=== PATIENT | male | born 1965 | race Caucasian/White ===

== ENCOUNTER 2019-11-14 07:40 | Outpatient (CLI) | payer OTHER, SELFPAY ==
--- NOTE | 2019-11-14 07:51 | US_ITS ---
WS: [id number] SCROTAL ULTRASOUND EXAMINATION CLINICAL INFORMATION: EDEMA COMPARISON: None. FINDINGS: TESTES Normal in size and echotexture, without focal lesion. Color Doppler: Normal color Doppler flow pattern. Right testes size: 4.7 cm x 3.2 cm x 3.6 cm. Left testes size: 5.1 cm x 3.2 cm x 3.1 cm. EPIDIDYMIDES Normal in size and echotexture, without focal lesion. Color Doppler: Normal color Doppler flow pattern. Right epididymis size: 1.0 cm x 1.0 cm x 1.6 cm. Left epididymitis size: 0.9 cm x cm x cm. HYDROCELE Moderate bilateral hydroceles. VARICOCELE None. OTHER FINDINGS Fluid along the left inguinal canal. US/US scrotum [id number] IMPRESSION: 1. Moderate bilateral hydroceles greater than right. 2. Small amount of fluid along left inguinal canal. 3. Normal testicular echotexture.
== END 2019-11-14 07:41 | disposition home or self-care (01) ==
LOC: RAD 07:47
PROVIDERS: Family Provider Nurse Practitioner Family; PCP Nurse Practitioner Family; Visit Provider Nurse Practitioner Family
DX: N50.89 Other specified disorders of the male genital organs (principal); N43.3 Hydrocele, unspecified
CPT/HCPCS: 76870

== ENCOUNTER → 2022-05-27 11:51 | Outpatient (BNVA) | payer OTHER, SELFPAY | PROVIDERS: Family Provider Nurse Practitioner Family; PCP Clinical Nurse Specialist Adult Health; Visit Provider Clinical Nurse Specialist Adult Health | DX: M25.531 Pain in right wrist (principal); E87.6 Hypokalemia | CPT/HCPCS: 84132 ==

== ENCOUNTER → 2022-11-01 08:57 | Outpatient (BNVA) | payer OTHER, SELFPAY | PROVIDERS: Family Provider Nurse Practitioner Family; PCP Clinical Nurse Specialist Adult Health; Visit Provider Clinical Nurse Specialist Adult Health | DX: E87.6 Hypokalemia (principal); M46.1 Sacroiliitis, not elsewhere classified | CPT/HCPCS: 84132 ==

== ENCOUNTER → 2022-12-02 10:42 | Outpatient (BNVA) | payer OTHER, SELFPAY | PROVIDERS: Family Provider Nurse Practitioner Family; PCP Clinical Nurse Specialist Adult Health; Visit Provider Clinical Nurse Specialist Adult Health | DX: E87.6 Hypokalemia (principal) | CPT/HCPCS: 84132 ==

== ENCOUNTER → 2023-04-25 15:29 | Outpatient (BNVA) | payer OTHER, SELFPAY | PROVIDERS: Family Provider Nurse Practitioner Family; PCP Clinical Nurse Specialist Adult Health; Visit Provider Clinical Nurse Specialist Adult Health | DX: M25.473 Effusion, unspecified ankle (principal) | CPT/HCPCS: 80048 ==

== ENCOUNTER 2023-05-17 13:48 | Outpatient (CLI) | payer OTHER, SELFPAY ==
--- NOTE | 2023-05-17 14:15 | USCV_ITS ---
ShantaGreg baeza Age: 58 Gender: M : 1965 Exam Date: 05/17/2023 14:40 Ordering Phys: Jonathon Hartman NP Technologist: FELICITY Exam Location: [facility] – [place] Indication: BLE EDEMA HISTORY: Lower extremity swelling. PROCEDURES: Venous duplex imaging was performed in bilateral lower extremities. The following venous structures were evaluated: common femoral vein, profunda vein, proximal portion of the greater saphenous vein, superficial femoral vein, and the popliteal vein. In addition, the posterior tibial and peroneal trunk were evaluated. Serial compression, augmentation maneuvers, and spectral Doppler flow evaluation were performed. FINDINGS: Normal 2-D Doppler and augmentation and compressibility throughout the lower extremity venous structures. Additional imaging through the proximal calf veins also reveals no thrombus. Limited evaluation of the greater saphenous vein is patent with no thrombus. CONCLUSIONS No DVT bilateral lower extremities. Dr. Sheridan Sol DO (Electronically Signed) Final Date: 18 May 2023 05:57 S
== END 2023-05-17 13:49 | disposition home or self-care (01) ==
PROVIDERS: PCP Clinical Nurse Specialist Adult Health; Visit Provider Clinical Nurse Specialist Adult Health
DX: M25.473 Effusion, unspecified ankle (principal); R60.0 Localized edema
CPT/HCPCS: 93970

== ENCOUNTER → 2023-05-18 15:50 | Outpatient (BNVA) | payer OTHER, SELFPAY | PROVIDERS: PCP Clinical Nurse Specialist Adult Health; Visit Provider Clinical Nurse Specialist Adult Health | DX: M10.9 Gout, unspecified (principal); I10 Essential (primary) hypertension | CPT/HCPCS: 80048; 84550 ==

== ENCOUNTER → 2023-07-26 11:59 | Outpatient (BNVA) | payer OTHER, SELFPAY | PROVIDERS: PCP Clinical Nurse Specialist Adult Health; Visit Provider Clinical Nurse Specialist Adult Health | DX: M10.021 Idiopathic gout, right elbow; I10 Essential (primary) hypertension | CPT/HCPCS: 80053; 84550 ==

== ENCOUNTER → 2023-08-22 14:28 | Outpatient (BNVA) | payer OTHER, SELFPAY | PROVIDERS: PCP Clinical Nurse Specialist Adult Health; Visit Provider Clinical Nurse Specialist Adult Health | DX: I10 Essential (primary) hypertension (principal); E87.6 Hypokalemia | CPT/HCPCS: 80048; 84550 ==

== ENCOUNTER → 2023-10-18 11:38 | Outpatient (BNVA) | payer OTHER, SELFPAY | PROVIDERS: PCP Clinical Nurse Specialist Adult Health; Visit Provider Clinical Nurse Specialist Adult Health | DX: M10.9 Gout, unspecified (principal); I10 Essential (primary) hypertension | CPT/HCPCS: 80048; 84550 ==

== ENCOUNTER → 2023-11-28 09:36 | Outpatient (BNVA) | payer OTHER, SELFPAY | PROVIDERS: PCP Clinical Nurse Specialist Adult Health; Visit Provider Clinical Nurse Specialist Adult Health | DX: M10.021 Idiopathic gout, right elbow (principal); E87.6 Hypokalemia | CPT/HCPCS: 80048; 84550 ==